=== PATIENT | male | born 1990 | race Caucasian/White ===

== ENCOUNTER 2017-10-01 12:08 | Outpatient (RCR) | payer BC ==
[~2017-10-01] VITALS: Ht 185.4 cm; Wt 73.9 kg
== END 2017-10-04 | disposition home or self-care (01) ==
LOC: WCC 12:08
DX: L97.812 Non-pressure chronic ulcer of other part of right lower leg with fat layer exposed (principal); L97.811 Non-pressure chronic ulcer of other part of right lower leg limited to breakdown of skin; F17.200 Nicotine dependence, unspecified, uncomplicated
CPT/HCPCS: 11042; 11045; G0463; 99204

== ENCOUNTER 2017-10-08 09:00 | Outpatient (RCR) | payer BC | END 2017-11-04 | disposition home or self-care (01) | LOC: WCC 09:00 | DX: L97.812 Non-pressure chronic ulcer of other part of right lower leg with fat layer exposed (principal); L97.811 Non-pressure chronic ulcer of other part of right lower leg limited to breakdown of skin | CPT/HCPCS: 11042; 11045 ==